=== PATIENT | male | born 1960 ===

== ENCOUNTER → 2021-02-02 | Outpatient (CLI) | payer OTHER | END | disposition home or self-care (01) | LOC: LAB 13:17 → LAB SHORT 13:17 | DX: N62 Hypertrophy of breast (principal) | CPT/HCPCS: 36415; 84403 ==

== ENCOUNTER 2021-04-29 21:37 | Inpatient (IN) | payer OTHER ==
[~2021-04-29] VITALS: Ht 177.8 cm; Wt 83.4 kg
[2021-04-29 22:30] LABS: BASOPHILS ABSOLUTE AUTO 0.09 K/mm3 (0.00-0.23); BASOPHILS PERCENT AUTO 1 % (0-2); EOSINOPHILS ABSOLUTE AUTO 0.22 K/mm3 (0.00-0.68); EOSINOPHILS PERCENT AUTO 3 % (0-6); Hematocrit 49.5 % (37.0-53.0); Hemoglobin 17.3 g/dL (13.5-17.5); IMMATURE GRAN ABSOLUTE AUTO 0.03 K/mm3 (0.00-0.10); IMMATURE GRAN PERCENT AUTO 0 % (0-1); LYMPHOCYTES ABSOLUTE AUTO 2.98 K/mm3 (0.84-5.20); LYMPHOCYTES PERCENT AUTO 35 % (21-46); MONOCYTES ABSOLUTE AUTO 0.64 K/mm3 (0.16-1.47); MONOCYTES PERCENT AUTO 8 % (4-13); Mean Corpuscular HGB 30.8 pg (26.0-34.0); Mean Corpuscular HGB Conc 34.9 g/dL (31.5-36.5); Mean Corpuscular Volume 88 fL (80-100); Mean Platelet Volume 9.9 fL (9.1-12.4); NEUTROPHILS ABSOLUTE AUTO 4.58 K/mm3 (1.96-9.15); NEUTROPHILS PERCENT AUTO 54 % (41-73); Platelet Count 335 K/mm3 (150-400); RDW Standard Deviation 42.5 fL (35.1-46.3); Red Blood Cell Count 5.62 M/mm3 (4.30-5.90); White Blood Cell Count 8.54 K/mm3 (4.00-11.30)
[2021-04-29 22:47] LABS: Ethanol (Alcohol), Blood, Med <3 mg/dL
[2021-04-29 22:49] LABS: Alanine Aminotransfer (ALT/SGP 30 U/L (12-78); Albumin, Blood 4.1 g/dL (3.4-5.0); Albumin/Globulin Ratio 1.1 (0.8-1.8); Alk Phos 64 U/L (50-136); Anion Gap 6 mmol/L (6-16); Aspartate Aminotrans (AST/SGOT 15 U/L (12-37); Bilirubin, Total 0.6 mg/dL (0.1-1.0); Blood Urea Nitrogen 22 mg/dL (8-24); Bun/Creatinine Ratio 19.3 (12.0-20.0); CO2, Blood 32 mmol/L (21-32); Calcium, Blood 9.1 mg/dL (8.5-10.1); Chloride, Blood 102 mmol/L (98-108); Creatinine, Blood 1.14 mg/dL (0.60-1.20); Globulin, Blood 3.7 g/dL (2.2-4.0); Glomerular Filtration Rate >60 (60-); Glucose, Blood 113 mg/dL (70-99); Potassium, Blood 3.5 mmol/L (3.5-5.5); Sodium, Blood 140 mmol/L (136-145); Total Protein, Blood 7.8 g/dL (6.4-8.2)
[2021-04-29] MEDS ORDERED: ATOR40TA PO (22:59)
[2021-04-29] MEDS ORDERED: LISI20 PO (22:59)
[2021-04-29] MEDS ORDERED: HYDCHL25 PO (22:59)
--- NOTE | 2021-04-30 02:39 | NUR ---
ASSUMED CARE OF PT AT 0105 FROM THE ED. A/OX4 WITH LABILE MOOD REGARDING THE SITUATION HE FELT IT WAS VERY UNEXPECTED. CRYING EPISODES ARE WITNESSED, THERAPEUTIC COMMUNICATION AND TOUCH PROVIDED. NO REPORTS OF PAIN, CP/PRESSURE. EXPRESSIVE APHASIA AND SLURRING NOTED, THOUGH NOT CONSISTENT. NO FACIAL DROOPING, ABLE TO SMILE/RAISE EYEBROWS, SHRUG SHOULDERS, MOVE TONGUE ALL DIRECTIONS, NO ARM OR LEG WEAKNESS/DEVIATION NOTED. PERRLA. GAIT IS UNSTEADY - BED IN LOW, BED ALARM, INSTRUCTIONS TO CALL. BP REMAINS ELEVATED INTO THE 200'S. DR. GOMEZ NOTIFIED AND ANOTHER DOSE OF HYDRALAZINE 10MG ORDERED. SBP DOWN TO 180'S. RESPIRATORY WNL, OVER 95% ON RA. LS CLEAR. UNABLE TO OBTAIN TOXICOLOGY D/T PATIENT REFUSING US TO TEST HIS URINE. EDUCATED PATIENT ON IMPORTANCE, BUT PATIENT STILL REFUSES. PATIENT IS A 1/2 P[employer] SMOKER, EDUCATED THAT WE CANNOT DO THAT WHILE HE IS INPATIENT, AND ASKED IF PT WANTED NICOTINE PATCH AND HE REFUSED. WILL UPDATE CHANGES OCCUR.
[2021-04-30 04:15] LABS: BASOPHILS ABSOLUTE AUTO 0.07 K/mm3 (0.00-0.23); BASOPHILS PERCENT AUTO 1 % (0-2); EOSINOPHILS ABSOLUTE AUTO 0.26 K/mm3 (0.00-0.68); EOSINOPHILS PERCENT AUTO 3 % (0-6); Hematocrit 45.5 % (37.0-53.0); Hemoglobin 15.9 g/dL (13.5-17.5); IMMATURE GRAN ABSOLUTE AUTO 0.03 K/mm3 (0.00-0.10); IMMATURE GRAN PERCENT AUTO 0 % (0-1); LYMPHOCYTES ABSOLUTE AUTO 2.99 K/mm3 (0.84-5.20); LYMPHOCYTES PERCENT AUTO 32 % (21-46); MONOCYTES ABSOLUTE AUTO 0.63 K/mm3 (0.16-1.47); MONOCYTES PERCENT AUTO 7 % (4-13); Mean Corpuscular HGB 30.7 pg (26.0-34.0); Mean Corpuscular HGB Conc 34.9 g/dL (31.5-36.5); Mean Corpuscular Volume 88 fL (80-100); Mean Platelet Volume 10.2 fL (9.1-12.4); NEUTROPHILS ABSOLUTE AUTO 5.36 K/mm3 (1.96-9.15); NEUTROPHILS PERCENT AUTO 58 % (41-73); Platelet Count 319 K/mm3 (150-400); RDW Coefficient Variation 13.1 % (11.7-14.2); RDW Standard Deviation 42.5 fL (35.1-46.3); Red Blood Cell Count 5.18 M/mm3 (4.30-5.90); White Blood Cell Count 9.34 K/mm3 (4.00-11.30)
[2021-04-30 04:51] LABS: Alanine Aminotransfer (ALT/SGP 33 U/L (12-78); Albumin, Blood 3.8 g/dL (3.4-5.0); Albumin/Globulin Ratio 1.2 (0.8-1.8); Alk Phos 62 U/L (50-136); Anion Gap 8 mmol/L (6-16); Aspartate Aminotrans (AST/SGOT 20 U/L (12-37); Bilirubin, Total 0.5 mg/dL (0.1-1.0); Blood Urea Nitrogen 22 mg/dL (8-24); Bun/Creatinine Ratio 23.6 (12.0-20.0); CO2, Blood 28 mmol/L (21-32); Calcium, Blood 8.8 mg/dL (8.5-10.1); Chloride, Blood 103 mmol/L (98-108); Creatinine, Blood 0.93 mg/dL (0.60-1.20); Globulin, Blood 3.2 g/dL (2.2-4.0); Glomerular Filtration Rate >60 (60-); Glucose, Blood 115 mg/dL (70-99); Potassium, Blood 3.2 mmol/L (3.5-5.5); Sodium, Blood 139 mmol/L (136-145)
--- NOTE | 2021-04-30 07:29 | NUR ---
NIHSS DONE, SCORED 5 FOR RIGHT ARM DRIFT AND ATAXIA. SLURRED SPEECH, MILD WORD FINING ISSUES AND SENSATION DIFFERENCE BETWEEN RIGHT AND LEFT SIDE. BP ELEVATED 180-200 SYSTOLIC, WILL GIVE PRN IV HYDRALAZINE.
--- NOTE | 2021-04-30 12:01 | NUR ---
SBP >220 AND DBP >100, PRN HYDRALAZINE GIVEN PER ORDERS. BP STILL ELEVATED, BUT NOW BELOW PARAMETERS, WILL MONITOR BP CLOSELY AND RECHECK IN ANOTHER 30 MINUTES. Pt is anxious and agited about having to have BP taken so often.
--- NOTE | 2021-04-30 12:06 | NUR ---
Pt oriented x4. Pt is anxious and slightly agitated about having to do neuro assessment, but does cooperate. Still has the right upper ext drift on assessment and ataxia in right arm. Pt is still slurring and some word finding trouble. BP is high, prn hydralazine given.
--- NOTE | 2021-04-30 15:02 | NUR ---
Repeat BP did not meet prn medication parameters, <170 SBP and <100 DBP. Will give PO BP meds at [address] Lopes.
[2021-04-30 15:20] LABS: Source, Urine Clean Catch
[2021-04-30 15:24] LABS: Appearance, Urine Clear (Clear); Bilirubin, Urine Neg (Neg); Blood, Urine 1+ (Neg); Color, Urine Yellow (P-Yellow); Glucose Qualitative, Urine Neg (Neg); Ketones, Urine Neg (Neg); Leukocyte Esterase, Urine Neg (Neg); Nitrite, Urine Neg (Neg); Protein, Urine Neg (Neg); Urobilinogen, Urine NORM (Normal)
[2021-04-30 15:39] LABS: U Amphetamine Screen DETECTED; U Barbituate Screen Not Detected; U Benzodiazapine Screen Not Detected; U Cannabinoids Screen DETECTED; U Cocaine Screen Not Detected; U Methadone Screen Not Detected; U Methamphetamine Screen DETECTED; U Opiates Screen Not Detected
[2021-04-30 15:40] LABS: U Buprenorphine Screen Not Detected; U Oxycodone Screen Not Detected; U Phencyclidine Screen Not Detected; U Propoxyphene Screen Not Detected
[2021-04-30 15:42] LABS: Bacteria Rare /hpf; Red Blood Cells, Urine 0-2 /hpf (0-2); Squamous Epithelial Cells Rare /hpf (Few); White Blood Cells, Urine 0-2 /hpf (0-5)
--- NOTE | 2021-04-30 16:34 | NUR ---
Pt BP 190/101, Dr. Lopes said to give norvasc and lisinopril early, both were given and will recheck BP in one hour.
--- NOTE | 2021-04-30 18:02 | NUR ---
SHift note: Pt has right side weakness, drift in right upper ext, ataxia in right upper ext as well as slur and mild difficulity finding words. BP has been elevated all day. PO scheduled meds given with little effect as well as prn IV meds. Pt is A&O, but has been sleeping between cares. Urine sample sent to lab, see results. ECHO completed today. New IV placed due to infiltrated IV in left AC. Pt is on RA.
--- NOTE | 2021-04-30 18:20 | NUR ---
BP REMAINS ELEVATED, PRN CLONIDINE GIVEN PER PRN ORDERS.
[2021-05-01 04:47] LABS: Anion Gap 6 mmol/L (6-16); Blood Urea Nitrogen 27 mg/dL (8-24); Bun/Creatinine Ratio 24.5 (12.0-20.0); CO2, Blood 30 mmol/L (21-32); Calcium, Blood 9.2 mg/dL (8.5-10.1); Chloride, Blood 101 mmol/L (98-108); Glomerular Filtration Rate >60 (60-); Glucose, Blood 112 mg/dL (70-99); Potassium, Blood 3.5 mmol/L (3.5-5.5); Sodium, Blood 137 mmol/L (136-145)
--- NOTE | 2021-05-01 05:40 | NUR ---
SHIFT SUMMARY PATIENT FOUND TO A&OX4 AND WITHDRAWN UPON ASSUMPTION OF CARE. REAMINS WITHDRAWN WITH A DEPRESSED AFFECT.NO NEURO CHECKS ORDERED BUT A QUICK BASIC ONE SHOWED VERY LITTLE DEFICIT REMAINING WITH ONLY SLIGHT WEAKNESS ON RIGHT SIDE NOW ONLY COMPLAINT. SPEECH IS CLEAR. FRUSTRATED WITH SITUATION AND REFUSES CARE AND ASSESSMENTS AT TIMES. BP STABLE AFTER DAYSKANGFT RN GAVE PRN CLONIDINE AND REMAINED SO OVERNIGHT. HR IN THE 70'S ON THE MONITOR. UP IND IN ROOM. TOELRATING REG DIET WITHOUT ISSUE. VOIDING WELL WITH BATHROOM PRIVLEDGES AND PER URINAL. STATES HE IS READY TO GO HOME. NO ACUTE CONCERNS AT THIS TIME. WILL CONTINUE PLAN OF CARE UNTIL REPORT GIVEN TO CHYNA MADRID.
--- NOTE | 2021-05-01 08:33 | NUR ---
Neuro assessment this AM was slighly differnt than yesterday. The weakness and ataxia on the right side seems worse today. Pt right upper ext drifts, but does not hit the bed on exam. The right lower ext appears weaker this AM as well. Yesterday, pt did not have an issue with lifting leg off of bed and no ataxia was noticed yesterday. Today pt is having a hard time lifting leg and it drifts to bed when on assessment. Dr. Shrestha updated via phone on change in neuro status. Pt is alert and oriented today, still has the slurring and trouble with word finding. BP looks better this AM, scheduled meds given.
--- NOTE | 2021-05-01 09:58 | NUR ---
MRI form faxed for STAT MRI
--- NOTE | 2021-05-01 12:57 | NUR ---
Neuro check at 1100 was slighly improved. Pt was able to move lower extremity some more, but his leg did fall to the bed before 5 seconds. Right upper ext has drift still at this time and ataxia present in both upper and lower right extremity. Pt was taken to MRI 1245.
--- NOTE | 2021-05-01 15:02 | NUR ---
I updated pt friend (roommate José Luis) with pt permission. José Luis said that pt is normally a very active and outgoing individual.
--- NOTE | 2021-05-01 16:43 | NUR ---
Shift note: Pt is A&O, anxious and agitated at times. This AM the right sided weakness was worse than yesterday, especially on the lower ext. Ataxia was also present in both right ext. MD notifed and STAT MRI ordered. MRI did show an acute stroke, but pt is not a canadite for TPA. Pt worked with pt and recomended a cane. WEB UI DESIGNER did swallow eval and put in order for mechanical diet and thins ok. Up to chair and bathroom with cane and supervision. BP better today, no prn needed just the scheduled medications this AM.
--- NOTE | 2021-05-01 17:46 | NUR ---
Pts girlfriend was wanting update. I got approval from pt to give update. Yessi was updated. Her phone number is .
[2021-05-02] MEDS ORDERED: AMLO5 PO (12:46)
[2021-05-02] MEDS ORDERED: ASPI81CH PO (12:47)
[2021-05-02] MEDS ORDERED: CLOP75 PO (12:48)
--- NOTE | 2021-05-02 14:25 | NUR ---
PATIENT WAS DISCHARGED HOME DUE TO MULTIPLE REFUSALS OF CARE. ENCOURAGED THE NEED FOR PARTICIPATION STILL DENIED OT AND PT. PATIENT IV AND POWERGLIDE WERE TAKEN OUT AND TELEMETRY REMOVED. DISCHARGE INSTRUCTIONS WERE COMPLETELY UNDERSTOOD. PATIENT HAD NO QUESTIONS COMMENTS OR CONCERNS, WHEELED OUT BY PCU COMPOSING ROOM MACHINIST.
--- NOTE | 2021-05-06 16:24 | NUR ---
Received referral from nurse healthcare consulting manager (Carina Pastrana) on 05/02/2021. Patient was admitted to [facility] on 05/01/2021 due to acute ischemic stroke. Patient discharged 05/02/2021 with orders for home health and elected [facility]. Attempted to reach patient on 05/03/2021 at 1219. Unfortunately patient did not answer. Left voicemail asking patient to return this property underwriter's call. Second attempted to reach patient on 05/06/2021 at 1222. Unfortunately patient did not answer. Left voicemail asking patient to return this property underwriter's call. Third and final attempted to reach patient on 05/06/2021 at 1614. Unfortunately patient did not answer. Left voicemail asking patient to return this property underwriter's call. As this property underwriter is unable to reach/locate patient, referral was not sent to [facility] for review. No further interventions required. Saadia Gomez Referral Liaison
== END 2021-05-02 14:25 | disposition home health service (06) | DRG 65 ==
LOC: ER 21:37 → PCU 21:38 → ER 04-30 01:14 → PCU 05-01 10:04
PROVIDERS: Family Medicine; Student in an Organized Health Care Education/Training Program; ADMIT Internal Medicine
DX: I63.89 Other cerebral infarction (principal); G81.91 Hemiplegia, unspecified affecting right dominant side; I16.1 Hypertensive emergency; R29.708 NIHSS score 8; E87.6 Hypokalemia; I65.23 Occlusion and stenosis of bilateral carotid arteries; R47.1 Dysarthria and anarthria; R47.81 Slurred speech; I66.9 Occlusion and stenosis of unspecified cerebral artery; F15.10 Other stimulant abuse, uncomplicated; F12.90 Cannabis use, unspecified, uncomplicated; Z91.14 Patient's other noncompliance with medication regimen; E78.5 Hyperlipidemia, unspecified; I10 Essential (primary) hypertension; F17.210 Nicotine dependence, cigarettes, uncomplicated; Z79.899 Other long term (current) drug therapy; Z71.6 Tobacco abuse counseling
CPT/HCPCS: 36415; 70450; 70496; 70498; 70551; 71045; 80048; 80053; 81001; 82947; 85025; 85730; 92526; 92610; 93005; 93010; 93306; 96365; 96372; 96375; 96376; 97112; 97162; 99285-25; A9270; C1751; G0378; G0480; J0360; J1650; J7050; Q9967